=== PATIENT | female | born 1990 | race Caucasian/White ===

== ENCOUNTER 2016-05-22 18:17 | Emergency (ER) | payer OTHER ==
[~2016-05-22] VITALS: Ht 154.9 cm; Wt 55.0 kg
[~2016-05-22 18:17] MED LIST: IBUP800T23 PO; TRAM50TA PO; TYLE325T PO; ZITHTAB PO
[2016-05-22 18:24] VITALS: BP 94/59; PULSE 62; RESP 16; TEMP 98.8; O2SAT 100
[2016-05-22] MEDS ORDERED: SODIUM CHLOR 0.9% 1000 ML INJ 1,000 ML IV SCH (19:03)
[2016-05-22 19:14] VITALS: BP 108/62; PULSE 62; RESP 20; O2SAT 100
[2016-05-22] MEDS ORDERED: diphenhydrAMINE HCL 25 MG CAP PO ONE (19:15)
[2016-05-22] MEDS ORDERED: SODIUM CHLORIDE 0.9% FLUSH 5 ML FLUSH IVF PRN (19:15)
[2016-05-22] MEDS ORDERED: ACETAMINOPHEN 325 MG TAB PO ONE (19:15)
[2016-05-22 19:32] LABS: AUTOMATED NEUTROPHIL # 5.2 TH/MM3 (1.8-7.7); BASOPHIL % 0.3 % (0.0-2.0); EOSINOPHIL # 0.2 TH/MM3 (0-0.4); EOSINOPHIL % 2.5 % (0.0-4.0); HEMATOCRIT 38.8 % (35.0-46.0); HEMO FLAGS DIFF FINAL; LYMPH % 28.3 % (9.0-44.0); LYMPHOCYTE # 2.4 TH/MM3 (1.0-4.8); MEAN CELL VOLUME 89.3 FL (80.0-100.0); MEAN CORPUSCULAR HGB CONC 33.6 % (32.0-36.0); MONO % 8.8 % (0.0-8.0); NEUT % 60.1 % (16.0-70.0); PLATELET COUNT 300 TH/MM3 (150-450); RED BLOOD COUNT 4.34 MIL/MM3 (4.00-5.30); RED CELL DISTRIBUTION WIDTH 12.7 % (11.6-17.2); WHITE BLOOD COUNT 8.6 TH/MM3 (4.0-11.0)
[2016-05-22 19:41] LABS: POTASSIUM 3.4 MEQ/L (3.5-5.1)
[2016-05-22 19:43] LABS: BICARBONATE 23.7 MEQ/L (21.0-32.0)
[2016-05-22 20:13] VITALS: BP 84/43; PULSE 57; RESP 20; O2SAT 97
[2016-05-22 21:16] LABS: BLOOD, URINE NEG (NEG); GLUCOSE,URINE NEG (NEG); KETONE, URINE NEG (NEG); NITRITE,URINE NEG (NEG); PH, URINE 6.5 (5.0-8.5)
[2016-05-22 21:22] LABS: URINE COLOR STRAW (YELLW/STRAW)
[2016-05-22 21:23] LABS: COMMENT (UR) CULT NOT INDICATED; CULTURE IF INDICATED CULT NOT INDICATED; RBC, URINE 0-3 /hpf (0-3); SQUAMOUS EPITHELIAL CELL URINE 0-5 /hpf (0-5); WBC, URINE 0-2 /hpf (0-5)
[2016-05-22 21:30] VITALS: BP 99/55; PULSE 60; RESP 18; O2SAT 100
[2016-05-22] MEDS ORDERED: PREN1TAB45 PO (21:32)
--- NOTE | 2016-05-22 21:32 | PD ---
HPI Chief Complaint: Related Problem Time Seen by Provider: 18:53 Travel History International Travel<30 days: No Contact w/Intl Traveler<30days: No Traveled to known affect area: No History of Present Illness HPI Patient is a 25-year-old female who is at approximately 8 weeks gestational age by last measure. Presents today with multiple bites. Patient states she's been having some intermittent vaginal spotting and is concerned "about a high risk because she was told she probably had cervical cancer". Patient states she's also been having a mild headache as well as some nausea intermittently. Patient states that she went to an ambulatory Center and was told that she was early based on her last menstrual. She is yet to establish with an WARDSPERSON. She denies any abdominal pain but does complain of a right hip pain. Denies any injury denies any vomiting or diarrhea. PFSH Past Medical History Hx Anticoagulant Therapy: No Asthma: Yes Diabetes: No Diminished Hearing: No Musculoskeletal: Yes (TMJ, BULGING DISC, SPINAL FUSION) Reproductive: Yes (states abnormal cervical cells) Respiratory: Yes (ASTHMA) Immunizations Current: Yes ?: LMP: 03/12/16 NOT A NORMAL MENSES : 1 Para: 0 : 1 Ovarian Cysts: Yes Social History Alcohol Use: No (DENIES) Tobacco Use: Yes (3 CIGARETTES A DAY) Substance Use: No (DENIES) Allergies-Medications (Allergen,Severity, Reaction): Coded Allergies: Vicodin (Verified Allergy, Severe, Hives, 05/22/16) Amoxicillin (Unverified Allergy, Intermediate, HIVES, 05/22/16) Septra (Unverified Allergy, Intermediate, HIVES, 05/22/16) Reported Meds & Prescriptions Reported Meds & Active Scripts Active Pnv Tabs 29-1 29-1 mg ( Vit W/ Iron Carbonyl-) 1 Tab Tab 1 Tab PO DAILY Review of Systems Except as stated in HPI: all other systems reviewed are Neg Physical Exam Narrative GENERAL: Well-developed well-nourished no apparent distress SKIN: Warm and dry. HEAD: Atraumatic. Normocephalic. EYES: Pupils equal and round. No scleral icterus. No injection or drainage. ENT: No nasal bleeding or discharge. Mucous membranes pink and moist. NECK: Trachea midline. No JVD. CARDIOVASCULAR: Regular rate and rhythm. No murmur appreciated. RESPIRATORY: No accessory muscle use. Clear to auscultation. Breath sounds equal bilaterally. GASTROINTESTINAL: Abdomen soft, non-tender, nondistended. Hepatic and splenic margins not palpable. GENITOURINARY: Patient was examined in the presence of female nurse at all times , grossly normal external febrile genitalia, there is this lesion on her cervix and the 6 o'clock position red and pearlescent. Could be consistent with cervical cancer. Cervix is closed there is no bleeding in the vagina nor from the cervical os. There is no bimanual tenderness no cervical motion tenderness and no discharge. MUSCULOSKELETAL: No obvious deformities. No clubbing. No cyanosis. No edema. Right hip is nontender at the point where the patient states she's having pain. She is a in the emergency department. NEUROLOGICAL: Awake and alert. No obvious cranial nerve deficits. Motor grossly within normal limits. Normal speech. PSYCHIATRIC: Appropriate mood and affect; insight and judgment normal. Data Data Last Documented VS Vital Signs Date Time Temp Pulse Resp B/P Pulse Ox O2 Delivery O2 Flow Rate FiO2 05/22/16 21:30 60 18 99/55 100 Room Air 05/22/16 18:24 98.8 Orders Basic Metabolic Panel (Bmp) (05/22/16 19:03) Beta Hcg (Quant/Titer) (05/22/16 19:03) Complete Blood Count With Diff (05/22/16 19:03) Urinalysis - C+S If Indicated (05/22/16 19:03) Iv Access Insert/Monitor (05/22/16 19:03) Ecg Monitoring (05/22/16 19:03) Oximetry (05/22/16 19:03) Sodium Chlor 0.9% 1000 Ml Inj (Ns 1000 M (05/22/16 19:03) Sodium Chloride 0.9% Flush (Ns Flush) (05/22/16 19:15) Acetaminophen (Tylenol) (05/22/16 19:15) Diphenhydramine (Benadryl) (05/22/16 19:15) Ed Poc Ultrasound (05/22/16 20:00) Labs Laboratory Tests Test 05/22/16 05/22/16 19:10 21:00 White Blood Count 8.6 TH/MM3 Red Blood Count 4.34 MIL/MM3 Hemoglobin 13.1 GM/DL Hematocrit 38.8 % Mean Corpuscular Volume 89.3 FL Mean Corpuscular Hemoglobin 30.0 PG Mean Corpuscular Hemoglobin 33.6 % Concent Red Cell Distribution Width 12.7 % Platelet Count 300 TH/MM3 Mean Platelet Volume 7.9 FL Neutrophils (%) (Auto) 60.1 % Lymphocytes (%) (Auto) 28.3 % Monocytes (%) (Auto) 8.8 % Eosinophils (%) (Auto) 2.5 % Basophils (%) (Auto) 0.3 % Neutrophils # (Auto) 5.2 TH/MM3 Lymphocytes # (Auto) 2.4 TH/MM3 Monocytes # (Auto) 0.8 TH/MM3 Eosinophils # (Auto) 0.2 TH/MM3 Basophils # (Auto) 0.0 TH/MM3 CBC Comment DIFF FINAL Differential Comment Sodium Level 141 MEQ/L Potassium Level 3.4 MEQ/L Chloride Level 107 MEQ/L Carbon Dioxide Level 23.7 MEQ/L Anion Gap 10 MEQ/L Blood Urea Nitrogen 6 MG/DL Creatinine 0.57 MG/DL Estimat Glomerular Filtration 127 ML/MIN Rate Random Glucose 68 MG/DL Calcium Level 8.9 MG/DL Human Chorionic Gonadotropin, 12730 MIU/ML Quant Urine Color STRAW Urine Turbidity CLEAR Urine pH 6.5 Urine Specific [place] 1.015 Urine Protein NEG mg/dL Urine Glucose (UA) NEG mg/dL Urine Ketones NEG mg/dL Urine Occult Blood NEG Urine Nitrite NEG Urine Bilirubin NEG Urine Leukocyte Esterase NEG Urine RBC 0-3 /hpf Urine WBC 0-2 /hpf Urine Squamous Epithelial 0-5 /hpf Cells Microscopic Urinalysis Comment CULT NOT INDICATED MDM Medical Decision Making Medical Screen Exam Complete: Yes Emergency Medical Condition: Yes Differential Diagnosis Headache, preeclampsia unlikely, ectopic unlikely, nausea, Narrative Course Patient was roomed in the emergency department, labs are reassuring, she was given Tylenol as well as Benadryl and normal saline. Bedside ultrasound as below is reassuring, after seeing her ultrasound the patient states she felt much better and wanted to go home. Discussed need for follow-up with an WARDSPERSON on only for OB care for ongoing care of cervical lesion. She has never had a Pap smear of this lesion. Discussed early care including vitamins and absence from smoking illicit drugs and drinking. Discussed return to ED criteria. Procedures Procedure Narrative Bedside ultrasound abdomen shows single intrauterine with heart tones 156 by M-mode. No gross deformity. No free fluid in the pelvis. Approximate 7-8 weeks gestational age by crown-rump length. Diagnosis Primary Impression: Headache in Additional Impression: Vaginal spotting Med/Other Pt SpecificInfo: Prescription(s) given Scripts Vit W/ Iron Carbonyl- (Pnv Tabs 29-1 29-1 mg)1 Tab Tab1 Tab PO DAILY # 30 TAB Ref 9 Prov:Jono Edmonds MD 05/22/16 Disposition: 01 DISCHARGE HOME Condition: Stable Jono Edmonds MD May 22, 2016 21:32
== END 2016-05-22 22:09 | disposition home or self-care (01) ==
LOC: PHED 18:17
DX: O26.891 Other specified pregnancy related conditions, first trimester (principal); R51 Headache; O26.851 Spotting complicating pregnancy, first trimester; N88.8 Other specified noninflammatory disorders of cervix uteri; Z87.39 Personal history of other diseases of the musculoskeletal system and connective tissue; Z72.0 Tobacco use; Z3A.08 8 weeks gestation of pregnancy
CPT/HCPCS: 80048; 81001; 84702; 85025; 96360; 99284; J7030

== ENCOUNTER 2016-10-23 18:52 | Emergency (ER) | payer MEDICAID, OTHER ==
[~2016-10-23] VITALS: Ht 154.9 cm; Wt 66.7 kg
[~2016-10-23 18:52] MED LIST changes: -IBUP800T23 PO; +PREN1TAB45 PO; -TRAM50TA PO; -TYLE325T PO; -ZITHTAB PO
[2016-10-23 18:57] VITALS: BP 96/58; PULSE 78; RESP 18; TEMP 97.9; O2SAT 100
[2016-10-23] MEDS ORDERED: ZOFR4TAB3 SL (19:07)
[2016-10-23] MEDS ORDERED: VENTAER INH (19:07)
[2016-10-23] MEDS ORDERED: MAGICPED SWISH-SPIT (19:26)
[2016-10-23] MEDS ORDERED: ACET-898 PO (19:26)
[2016-10-23] MEDS ORDERED: PERI0.126 SWISH-SPIT (19:26)
--- NOTE | 2016-10-23 19:28 | PD ---
HPI Chief Complaint: Oral / Dental Pain or Problem Time Seen by Provider: 19:20 Travel History International Travel<30 days: No Contact w/Intl Traveler<30days: No Traveled to known affect area: No History of Present Illness HPI 26-year-old at 29 weeks female presents to the emergency room for evaluation of right-sided dental pain for the past 2 days. Patient states her pain has been going on for a month but worsened 2 days ago. Pain is severe and radiates into her ear. Worse with eating and drinking. She called her dentist who state they could not get her in for another week. Patient states she had her wisdom teeth taken out 4 months ago and at that time was prescribed Tylenol #3 and clindamycin. Patient states she has been taking Tylenol without relief in symptoms. She had one leftover Tylenol #3 that she took a few days ago and didn't seem to help. Patient denies fever, chills, nausea, vomiting, and drainage. She does smoke 2-3 cigarettes per day. PFSH Past Medical History Hx Anticoagulant Therapy: No Asthma: Yes Diabetes: No Diminished Hearing: No Musculoskeletal: Yes (TMJ, BULGING DISC, SPINAL FUSION) Reproductive: Yes (states abnormal cervical cells) Respiratory: Yes (Asthma) Immunizations Current: Yes Tetanus Vaccination: Unknown Influenza Vaccination: No ?: LMP: 29 weeks preg : 2 Para: 0 : 1 Ovarian Cysts: Yes Social History Alcohol Use: No (DENIES) Tobacco Use: Yes (3 CIGARETTES A DAY) Substance Use: No (DENIES) Allergies-Medications (Allergen,Severity, Reaction): Coded Allergies: Vicodin (Verified Allergy, Severe, Hives, 10/23/16) Amoxicillin (Unverified Allergy, Intermediate, HIVES, 10/23/16) Codeine (Verified Allergy, Intermediate, Itching, 10/23/16) Septra (Unverified Allergy, Intermediate, HIVES, 10/23/16) Reported Meds & Prescriptions Reported Meds & Active Scripts Active Magic Mouthwash Pediatric/Adult Liq (Lidocaine/Diphenhydr/Alum/Mg/Simeth) 60 Ml Susp 5 Ml SWISH-SPIT ACHS Each 5mL contains: Diphenydramine 4.5mg, Viscous Lidocaine 2% 10mg, Maalox Advanced Regular Strength 2.7ml Peridex Liq (Chlorhexidine Gluconate (Mouth) Liq) 0.12% Soln 15 Ml SWISH-SPIT BID Acetaminophen Extra Strength (Acetaminophen) 500 Mg Tablet 1 Cap PO Q6HR PRN Pnv Tabs 29-1 29-1 mg ( Vit W/ Iron Carbonyl-) 1 Tab Tab 1 Tab PO DAILY Reported Ventolin Hfa 18 GM Inh (Albuterol Sulfate) 90 Mcg/Act Aer 2 Puff INH Q6H PRN Zofran Odt (Ondansetron Odt) 4 Mg Tab 4 Mg SL Q8HR PRN Review of Systems Except as stated in HPI: all other systems reviewed are Neg Physical Exam Narrative GENERAL: Well-nourished, well-developed female in no acute distress. Afebrile. Ambulatory. SKIN: Focused skin assessment warm/dry. HEAD: Normocephalic. EYES: No scleral icterus. No injection or drainage. DENTAL: Moderate to severe decay throughout. No malocclusion. No erythema or edema. No obvious abscess. No submental, sublingual regular, or buccal induration. NECK: Supple, trachea midline. No JVD or lymphadenopathy. CARDIOVASCULAR: Regular rate and rhythm without murmurs, gallops, or rubs. RESPIRATORY: Breath sounds equal bilaterally. No accessory muscle use. Data Data Last Documented VS Vital Signs Date Time Temp Pulse Resp B/P Pulse Ox O2 Delivery O2 Flow Rate FiO2 10/23/16 18:57 97.9 78 18 96/58 100 MDM Medical Decision Making Medical Screen Exam Complete: Yes Emergency Medical Condition: Yes Medical Record Reviewed: Yes Differential Diagnosis Gingivitis versus dental caries versus dental abscess Narrative Course 26-year-old 29 weeks female presents to the emergency room for evaluation of dental pain for the past month that worsened 2 days ago. Physical exam is unremarkable. There is mild tenderness to palpation of tooth # 29 but no surrounding erythema. No obvious abscess. There is moderate decay throughout and multiple dental caries. Patient was informed that she cannot be prescribed narcotic pain medication because she is . She was offered a lidocaine injection but declined. She was discharged with prescription for Magic mouthwash, Peridex oral rinse, and Tylenol. Told to follow up with a dentist and her OB or return for worsening symptoms. She understands and agrees to plan. Diagnosis Primary Impression: Dental caries Referrals: Dentist Patient Instructions: Dental Caries (ED), General Instructions Additional Instructions: Rest and drink plenty of fluids. Tylenol as directed. Magic mouthwash and Peridex as directed. Swish and spit; do not swallow. Follow-up with a dentist. Return to the emergency room for worsening symptoms. Med/Other Pt SpecificInfo: Prescription(s) given Scripts Bpuszijffubxdsy-Ukztrcrlz-Czq-Alum-Simeth Liq (Magic Mouthwash Pediatric/Adult Liq)60 Ml Susp5 Ml SWISH-SPIT ACHS #60 ML Ref 0 Each 5mL contains: Diphenydramine 4.5mg, Viscous Lidocaine 2% 10mg, Maalox Advanced Regular Strength 2.7ml Prov:Isabella Borges MD 10/23/16 Chlorhexidine Gluconate (Mouth) Liq (Peridex Liq)0.12% Soln15 Ml SWISH-SPIT BID #473 ML Ref 0 Prov:Isabella Borges MD 10/23/16 Acetaminophen (Acetaminophen Extra Strength)500 Mg Tablet1 Cap PO Q6HR PRN ( PAIN SCALE 1 TO 10) #20 Prov:Isabella Borges MD 10/23/16 Disposition: 01 DISCHARGE HOME Condition: Stable Prisca Mccormick Oct 23, 2016 19:28
== END 2016-10-23 19:35 | disposition home or self-care (01) ==
LOC: PHEFT 18:52
DX: O99.513 Diseases of the respiratory system complicating pregnancy, third trimester (principal); K02.9 Dental caries, unspecified; J45.909 Unspecified asthma, uncomplicated; F17.210 Nicotine dependence, cigarettes, uncomplicated; Z3A.29 29 weeks gestation of pregnancy
CPT/HCPCS: 99284

== ENCOUNTER 2017-01-11 13:57 | Emergency (ER) | payer MEDICAID ==
[~2017-01-11] VITALS: Ht 154.9 cm; Wt 62.9 kg
[~2017-01-11 13:57] MED LIST changes: +ACET-898 PO; +MAGICPED SWISH-SPIT; +PERI0.126 SWISH-SPIT; +VENTAER INH; +ZOFR4TAB3 SL
[2017-01-11 14:29] VITALS: BP 121/56; PULSE 87; RESP 16; TEMP 98.8; O2SAT 97
--- NOTE | 2017-01-11 16:01 | PD ---
HPI Chief Complaint: Pain: Acute or Chronic Time Seen by Provider: 15:33 Travel History International Travel<30 days: No Contact w/Intl Traveler<30days: No Traveled to known affect area: No History of Present Illness HPI pt is 26 and wonders if she may have given here child oral candidiasis from breast feeding. no rash/esions about areola/nipples. no fever. no pain. PFSH Past Medical History Hx Anticoagulant Therapy: No Asthma: Yes Diabetes: No Diminished Hearing: No Musculoskeletal: Yes (TMJ, BULGING DISC, SPINAL FUSION) Reproductive: Yes (states abnormal cervical cells) Respiratory: Yes (Asthma) Immunizations Current: Yes Tetanus Vaccination: < 5 Years Influenza Vaccination: Yes ?: Not : 2 Para: 1 : 1 Ovarian Cysts: Yes Social History Alcohol Use: No Tobacco Use: Yes (1/2 PPD ) Substance Use: No (DENIES) Allergies-Medications (Allergen,Severity, Reaction): Coded Allergies: acetaminophen (Unverified Allergy, Severe, Hives, 01/11/17) hydrocodone (Unverified Allergy, Severe, Hives, 01/11/17) amoxicillin (Unverified Allergy, Intermediate, HIVES, 01/11/17) codeine (Unverified Allergy, Intermediate, Itching, 01/11/17) sulfamethoxazole (Unverified Allergy, Intermediate, HIVES, 01/11/17) trimethoprim (Unverified Allergy, Intermediate, HIVES, 01/11/17) Reported Meds & Prescriptions Reported Meds & Active Scripts Active No Active Prescriptions or Reported Medications Review of Systems General / Constitutional: Positive: Fever Physical Exam Narrative GENERAL: WNWD, NAD, speaking full sentences SKIN: Warm and dry. HEAD: Normocephalic. EYES: No scleral icterus. No injection or drainage. NECK: Supple, trachea midline. No JVD or lymphadenopathy. CARDIOVASCULAR: Regular rate and rhythm without murmurs, gallops, or rubs. RESPIRATORY: Breath sounds equal bilaterally. No accessory muscle use. GASTROINTESTINAL: Abdomen soft, non-tender, nondistended. MUSCULOSKELETAL: No cyanosis, or edema. BACK: Nontender without obvious deformity. No CVA tenderness. Data Data Last Documented VS Vital Signs Date Time Temp Pulse Resp B/P (MAP) Pulse Ox O2 Delivery O2 Flow Rate FiO2 01/11/17 16:05 01/11/17 14:29 98.8 87 16 97 Room Air VS reviewed, BP normal MDM Medical Decision Making Medical Screen Exam Complete: Yes Emergency Medical Condition: Yes Medical Record Reviewed: Yes Differential Diagnosis tinea disease, diabetes, cellulitis, abscess Narrative Course cleansing precautions discussed pt ok for discharge Diagnosis Primary Impression: Breast feeding status of mother Referrals: Primary Care Physician Additional Instructions: You have a choice when it comes to health care, and we are glad that you chose [facility]. Hopefully, we have met your expectations on today's visit. You are welcome to return to [facility] at any time, as we are committed to meeting the health care needs of our community. Med/Other Pt SpecificInfo: No Change to Meds Scripts No Active Prescriptions or Reported Meds Disposition: 01 DISCHARGE HOME Condition: Dominick Baxter MD Jan 11, 2017 16:01
== END 2017-01-11 16:12 | disposition home or self-care (01) ==
LOC: PHEFT 13:57
DX: Z39.1 Encounter for care and examination of lactating mother (principal); J45.909 Unspecified asthma, uncomplicated; F17.210 Nicotine dependence, cigarettes, uncomplicated
CPT/HCPCS: 99281

== ENCOUNTER 2017-05-25 12:06 | Emergency (ER) | payer MEDICAID ==
[~2017-05-25] VITALS: Ht 154.9 cm; Wt 59.0 kg
[2017-05-25 12:33] VITALS: BP 91/62; PULSE 70; RESP 16; TEMP 98.5; O2SAT 100
[2017-05-25 13:05] LABS: BILIRUBIN, URINE NEG (NEG); BLOOD, URINE NEG (NEG); GLUCOSE,URINE NEG (NEG); KETONE, URINE NEG (NEG); NITRITE,URINE NEG (NEG); URINE LEUKOCYTE ESTERASE SMALL (NEG)
[2017-05-25 13:08] LABS: URINE COLOR STRAW (YELLW/STRAW)
--- NOTE | 2017-05-25 13:08 | PD ---
HPI Chief Complaint: Flank/Kidney Pain Time Seen by Provider: 12:46 Travel History International Travel<30 days: No Contact w/Intl Traveler<30days: No Traveled to known affect area: No History of Present Illness HPI This Is a 26-year-old female who presents to the emergency department with 2 weeks of nasal congestion and cough, productive with some yellow sputum, constant, moderate severity, associated with one week of increasing difficulty urinating. She says that she's felt pressure when she urinates and she has some left-sided abdominal pain that radiates to her back. She denies any fevers or chills and denies any vomiting. She says this feels similar to urinary tract infection she's had in the past. The patient smokes cigarettes. She's been taking Aleve and ibuprofen but that's not been helping. PFSH Past Medical History Hx Anticoagulant Therapy: No Asthma: Yes Diabetes: No Diminished Hearing: No Musculoskeletal: Yes (TMJ, BULGING DISC, SPINAL FUSION) Reproductive: Yes (states abnormal cervical cells) Respiratory: Yes (Asthma) Immunizations Current: Yes ?: Not LMP: 05/13/17 : 2 Para: 1 : 1 Ovarian Cysts: Yes Social History Alcohol Use: No Tobacco Use: Yes (05/21 PPD ) Substance Use: No (DENIES) Allergies-Medications (Allergen,Severity, Reaction): Coded Allergies: acetaminophen (Unverified Allergy, Severe, Hives, 05/25/17) hydrocodone (Unverified Allergy, Severe, Hives, 05/25/17) amoxicillin (Unverified Allergy, Intermediate, HIVES, 05/25/17) codeine (Unverified Allergy, Intermediate, Itching, 05/25/17) sulfamethoxazole (Unverified Allergy, Intermediate, HIVES, 05/25/17) trimethoprim (Unverified Allergy, Intermediate, HIVES, 05/25/17) Reported Meds & Prescriptions Reported Meds & Active Scripts Active No Active Prescriptions or Reported Medications Review of Systems Except as stated in HPI: all other systems reviewed are Neg Physical Exam Narrative GENERAL:Well appearing, no acute distress SKIN: Focused skin assessment warm and dry. HEAD: Atraumatic. Normocephalic. EYES: Pupils equal and round. No injection or drainage. ENT: Moist mucous membranes NECK: Trachea midline. CARDIOVASCULAR: Regular rate and rhythm. No murmur appreciated. RESPIRATORY: Clear to auscultation. Breath sounds equal bilaterally. GASTROINTESTINAL: Abdomen soft, tender to palpation in the suprapubic region with no rebound/guarding : mild left CVA tenderness MUSCULOSKELETAL: No obvious deformities. NEUROLOGICAL: Awake and alert. No obvious cranial nerve deficits. Moving all extremities Moving all extremities. Data Data Last Documented VS Vital Signs Date Time Temp Pulse Resp B/P (MAP) Pulse Ox O2 Delivery O2 Flow Rate FiO2 05/25/17 12:33 98.5 70 16 91/62 (72) 100 Orders Orders Urinalysis - C+S If Indicated (05/25/17 12:56) Urine Culture (05/25/17 13:00) Labs Laboratory Tests Test 05/25/17 13:00 Urine Collection Type CLEAN CATCH Urine Color STRAW Urine Turbidity SLIGHT Urine pH 6.0 Urine Specific [place] 1.007 Urine Protein NEG mg/dL Urine Glucose (UA) NEG mg/dL Urine Ketones NEG mg/dL Urine Occult Blood NEG Urine Nitrite NEG Urine Bilirubin NEG Urine Leukocyte Esterase SMALL Urine WBC 9-14 /hpf Urine Squamous Epithelial Cells > 8 /hpf Urine Amorphous Sediment MOD Urine Bacteria MOD /hpf Microscopic Urinalysis Comment CULTURE INDICATED Urine Collection Time 1300 MDM Medical Decision Making Medical Screen Exam Complete: Yes Emergency Medical Condition: Yes Interpretation(s) Afebrile, no tachycardia, normotensive Urinalysis is contaminated but does demonstrate moderate bacteria. Given the patient's symptoms I think it's reasonable to conclude this represents a urinary tract infection. Differential Diagnosis Urinary tract infection, pyelonephritis, bronchitis, viral syndrome Narrative Course This is a 26-year-old female who presents to the emergency department with suprapubic pressure, some dysuria and some upper respiratory symptoms. She is nontoxic appearing. She has normal vital signs. Urinalysis is inconclusive and contaminated but given the patient's symptoms I think it's reasonable to treat her for urinary tract infection. She has a stated allergy to amoxicillin as well as Bactrim. Given she has some flank pain I think ciprofloxacin is a reasonable choice. I did advise her on the risks of tendon rupture. Patient also will be prescribed meloxicam for pain. I think she is appropriate for outpatient antibiotic therapy. Diagnosis Primary Impression: Urinary tract infection Qualified Codes: N30.00 - Acute cystitis without hematuria Patient Instructions: General Instructions Additional Instructions: If you develop fever, persistent vomiting, back pain, or inability to eat return to the emergency department as your urine infection may have progressed to a kidney infection. Complete your antibiotics as prescribed. Stay well hydrated with Gatorade or water. Followup with your primary care physician in 2-3 days if your symptoms have not resolved. Med/Other Pt SpecificInfo: Prescription(s) given Scripts Dextromethorphan-Guaifenesin (Dextromethorphan-Guaifenesin) 20-400 mg Tab 1 TAB PO Q4H Y for CHEST CONGESTION AND/OR COUGH, #15 TAB 0 Refills Prov: Lesley Ruiz MD 05/25/17 Ciprofloxacin (Cipro) 250 Mg Tab 250 MG PO BID for Infection for 5 Days, #10 TAB 0 Refills Prov: Lesley Ruiz MD 05/25/17 Disposition: 01 DISCHARGE HOME Condition: Stable Lesley Ruiz MD May 25, 2017 13:08
[2017-05-25 13:09] LABS: AMORPHOUS SEDIMENT, URINE MOD; BACTERIA, URINE MOD /hpf; SQUAMOUS EPITHELIAL CELL URINE > 8 /hpf (0-5)
[2017-05-25] MEDS ORDERED: CIPR250T52 PO (13:15)
[2017-05-25] MEDS ORDERED: [UNRECOGNIZED DRUG - CODE] PO (13:15)
[2017-05-25] MEDS ORDERED: MELO15TA20 PO (13:16)
[2017-05-25] MEDS ORDERED: MELO7.5T27 PO (13:18)
[2017-05-25] MEDS ORDERED: VENTAER INH (13:32)
[2017-05-25 13:35] VITALS: BP 125/69
== END 2017-05-25 13:35 | disposition home or self-care (01) ==
LOC: PHED 12:06
DX: N30.00 Acute cystitis without hematuria (principal); B95.1 Streptococcus, group B, as the cause of diseases classified elsewhere; R05 Cough; R09.81 Nasal congestion; J45.909 Unspecified asthma, uncomplicated; F17.210 Nicotine dependence, cigarettes, uncomplicated
CPT/HCPCS: 81001; 87086; 99284